=== PATIENT | female | born 1965 | race Caucasian/White ===

== ENCOUNTER → 2020-12-01 | Day surgery (SDC) | payer OTHER ==
[~2020-12-01] VITALS: Ht 167.6 cm; Wt 78.9 kg
[~2020-12-01] MED LIST: ADVAIR INH; CLARITIN10 MG PO; COZAAR100 MG PO; HCTZ25 MG PO; METFORMIN HCL500 MG PO; TOPROL XL 50 MG50 MG PO; VENTOLIN HFA18 GM INH; VITAMIN B-121000 MC1 PO; VITAMIN D250 MC1 PO
[2020-12-01 08:25] LABS: EOSINOPHIL 1.8 % (0-5); HCT 40.9 % (37.0-47.0); HGB 13.4 g/dl (12.5-16.0); LYMPHOCYTE 39.8 % (15-48); MCH 29.9 pg (25.0-31.0); MCHC 32.8 g/dL (32.0-36.0); MCV 91.3 fL (78.0-100.0); MONOCYTE 7.8 % (0-12); MPV 10.4 fL (6.0-9.5); NEUTROPHIL 49.2 % (41-80); NRBC 0; PLT 193 K/uL (150-400); RBC 4.48 M/uL (4.20-5.40); RDW 11.9 % (11.5-14.0); WBC 8.2 K/uL (4.0-10.5)
[2020-12-01 08:52] LABS: ALBUMIN 3.7 g/dL (3.4-5.0); BILIRUBIN - TOTAL 0.8 mg/dL (0.2-1.0); BUN/CREAT RATIO (CALC) 18.6 RATIO; CREATININE 0.7 mg/dL (0.51-0.95); TOTAL PROTEIN 7.7 g/dL (6.4-8.2)
== END | disposition home or self-care (01) ==
LOC: FAS 07:37
PROVIDERS: Oral & Maxillofacial Surgery
DX: K02.9 Dental caries, unspecified (principal); K04.7 Periapical abscess without sinus; I25.10 Atherosclerotic heart disease of native coronary artery without angina pectoris; J45.909 Unspecified asthma, uncomplicated; H53.2 Diplopia
CPT/HCPCS: D7140; D7210; 36415; 71045; 80053; 85025; 94640; J1100; J2250; J2370; J2405; J2704; J3010; J7120